=== PATIENT | female | born 1985 | race Two or more races ===

== ENCOUNTER → 2024-08-17 | Emergency (ER) | payer OTHER ==
[~2024-08-17] VITALS: Ht 154.9 cm; Wt 49.9 kg
[~2024-08-17] MED LIST: METHYLPREDNISOLONE SOD SUCC 40 MG VIAL IM ONE; ORALONE5 GM TOP
== END | disposition home or self-care (01) ==
LOC: ER 08:16
DX: L40.8 Other psoriasis (principal); R21 Rash and other nonspecific skin eruption